=== PATIENT | female | born 1960 | race Two or more races ===

== ENCOUNTER 2020-07-24 11:15 | Outpatient (CLI) | payer MEDICAID ==
[~2020-07-24 11:15] MED LIST: ALBU6.7H9 INH; AMIT25TA10 PO; DULO60CA65 PO; HYDR-4353 PO; INSU100I25 SQ; INSU100I8 SQ; LIRA0.6P2 SQ; LISI-643 PO; METF-438 PO; PREG150C PO; SITA100T11 PO; VENL150C58 PO
[2020-07-24] MEDS ORDERED: silver sulfadiazine cream 50gm TP ONE (12:10)
== END 2020-07-24 23:59 | disposition home or self-care (01) ==
LOC: WOUND CARE 11:15
PROVIDERS: ATTEND Nurse Practitioner
DX: T25.021A Burn of unspecified degree of right foot, initial encounter (principal); T25.022A Burn of unspecified degree of left foot, initial encounter; E11.40 Type 2 diabetes mellitus with diabetic neuropathy, unspecified; I12.9 Hypertensive chronic kidney disease with stage 1 through stage 4 chronic kidney disease, or unspecified chronic kidney disease; N18.9 Chronic kidney disease, unspecified; M19.90 Unspecified osteoarthritis, unspecified site; K74.60 Unspecified cirrhosis of liver; E11.22 Type 2 diabetes mellitus with diabetic chronic kidney disease; Z87.891 Personal history of nicotine dependence; X08.8XXA Exposure to other specified smoke, fire and flames, initial encounter; Y93.89 Activity, other specified; Y92.89 Other specified places as the place of occurrence of the external cause; Y99.8 Other external cause status
CPT/HCPCS: G0463

== ENCOUNTER 2020-09-23 07:43 | Day surgery (SDC) | payer MEDICAID ==
[2020-09-23] VITALS (8 sets, daily range): BP systolic 110–125; BP diastolic 59–75
[~2020-09-23] VITALS: Ht 170.2 cm; Wt 97.7 kg
[2020-09-23] MEDS ORDERED: normal saline 1,000 ML IV SCH ×2 (08:05→13:15)
[2020-09-23] MEDS ORDERED: diphenhydrAMINE 25mg capsule PO PRN (08:05)
[2020-09-23] MEDS ORDERED: VITAMIN B12 (08:27)
[2020-09-23] MEDS ORDERED: OMEP-50 PO (08:27)
[2020-09-23] MEDS ORDERED: AMLO5TAB PO (08:27)
[2020-09-23] MEDS ORDERED: VITAMIN D3 (08:27)
[2020-09-23] MEDS ORDERED: ATOR40TA PO (08:27)
[2020-09-23] MEDS ORDERED: VITAMIN C (08:27)
[2020-09-23] MEDS ORDERED: LACTOBACILLUS (08:27)
[2020-09-23] MEDS ORDERED: NITR0.4T48 SL (08:27)
[2020-09-23 09:05] LABS: BASOPHILS % (AUTO) 0.7 % (0-1); EOSINOPHILS # (AUTO) 0.2 X10'3 (0-0.9); EOSINOPHILS % (AUTO) 3.2 % (0-6); HEMATOCRIT 34.7 % (35.0-45.0); HEMOGLOBIN 11.6 g/dl (12.0-16.0); LYMPHOCYTES # (AUTO) 1.5 X10'3 (1.1-4.8); LYMPHOCYTES % (AUTO) 22.8 % (21-51); MEAN CORPUSCULAR HEMOGLOBIN 29.6 PG (27.0-31.0); MEAN CORPUSCULAR HGB CONC 33.4 g/dL (33.0-36.5); MEAN CORPUSCULAR VOLUME 88.5 FL (78-98); MEAN PLATELET VOLUME 8.7 FL (7.4-10.4); MONOCYTES # (AUTO) 0.4 X10'3 (0-0.9); NEUTROPHILS # (AUTO) 4.2 X10'3 (1.8-7.7); NEUTROPHILS % (AUTO) 66.3 % (42-75); PLATELET COUNT 210 X10'3 (140-440); RED BLOOD COUNT 3.92 X10'6 (4.20-5.60); RED CELL DISTRIBUTION WIDTH 15.4 % (11.5-14.5); WHITE BLOOD COUNT 6.4 X10'3 (4.5-11.0)
[2020-09-23 09:15] LABS: ALBUMIN 3.3 G/DL (3.4-5.0); ANION GAP 12 (8-16); BLOOD UREA NITROGEN 33 MG/DL (7-18); BUN/CREATININE RATIO 22.8 (6.6-38.0); CALCIUM 9.2 MG/DL (8.5-10.1); CHLORIDE 106 MMOL/L (99-107); CREATININE 1.45 MG/DL (0.40-0.90); GLUCOSE 249 MG/DL (70-104); MAGNESIUM 1.7 MG/DL (1.5-2.4); POTASSIUM 4.9 MMOL/L (3.5-5.1); SODIUM 141 MMOL/L (135-145); TOTAL CARBON DIOXIDE 23.2 MMOL/L (24-32); eGFR 37 ML/MIN
[2020-09-23] MEDS ORDERED: iohexol 350MG/ML 100ml bottle IV ONE (11:57)
[2020-09-23] MEDS ORDERED: iohexol 350 MG/ML 50ML vial IV ONE (11:57)
[2020-09-23] MEDS ORDERED: LIDOcaine 1% (10mg/ml)w/preservative injection 20ml MDV ONE (11:57)
[2020-09-23] MEDS ORDERED: heparin 1,000unit/ml 10ml vial 10 ML ONE (11:57)
[2020-09-23] MEDS ORDERED: midazolam 1 mg/ML 2ml injection ONE ×2 (11:57→12:30)
[2020-09-23] MEDS ORDERED: fentaNYL/PF 50MCG/1 ML 2ML syringe ONE (11:57)
[2020-09-23] MEDS ORDERED: OXAZEpam 15mg capsule PO PRN (13:15)
[2020-09-23] MEDS ORDERED: HYDROcodone/acetaminophen 5mg/325mg tablet PO PRN (13:15)
[2020-09-23] MEDS ORDERED: proCHLORperazine 10 MG/2 ml inj IV PRN (13:15)
[2020-09-23] MEDS ORDERED: HYDROcodone/acetaminophen 10/325mg tab PO PRN (13:15)
[2020-09-23] MEDS ORDERED: ondansetron/PF 4mg/2ml inj IV PRN (13:15)
== END 2020-09-23 16:00 | disposition home or self-care (01) ==
LOC: SSTAY O 07:43
PROVIDERS: ATTEND Internal Medicine Cardiovascular Disease
DX: R94.39 Abnormal result of other cardiovascular function study (principal); R07.9 Chest pain, unspecified; I10 Essential (primary) hypertension; E78.5 Hyperlipidemia, unspecified; F41.9 Anxiety disorder, unspecified; K74.60 Unspecified cirrhosis of liver; Z86.19 Personal history of other infectious and parasitic diseases; E11.40 Type 2 diabetes mellitus with diabetic neuropathy, unspecified; E55.9 Vitamin D deficiency, unspecified; E66.9 Obesity, unspecified; Z68.33 Body mass index [BMI] 33.0-33.9, adult; Z79.899 Other long term (current) drug therapy; Z87.891 Personal history of nicotine dependence; Z98.890 Other specified postprocedural states; Z90.49 Acquired absence of other specified parts of digestive tract; Z90.710 Acquired absence of both cervix and uterus; Z86.010 Personal history of colon polyps; Z72.89 Other problems related to lifestyle; F12.90 Cannabis use, unspecified, uncomplicated; Z79.4 Long term (current) use of insulin
CPT/HCPCS: 36415; 80048; 82948; 83735; 85025; 85610; 93005; 93458; 99152; C1760; C1769; C1894; J1644; J2001; J2250; J3010; J7030; Q0163; Q9967; A4620; A6258

== ENCOUNTER 2020-10-22 21:49 | Emergency (ER) | payer MEDICAID ==
[~2020-10-22] VITALS: Ht 170.2 cm; Wt 94.5 kg
[~2020-10-22 21:49] MED LIST changes: -AMIT25TA10 PO; +AMLO5TAB PO; +ATOR40TA PO; -INSU100I25 SQ; +LACTOBACILLUS; +NITR0.4T48 SL; +OMEP-50 PO; -SITA100T11 PO; -VENL150C58 PO; +VITAMIN B12; +VITAMIN C; +VITAMIN D3
[2020-10-22 22:02] VITALS: BP 137/70
[2020-10-22] MEDS ORDERED: SULF1TAB45 PO (22:19)
[2020-10-22] MEDS ORDERED: sulfamethoxazole/trimethoprim DS (800/160mg) tablet PO ONE (22:20)
== END 2020-10-22 22:59 | disposition home or self-care (01) ==
LOC: ER 21:50
DX: L03.012 Cellulitis of left finger (principal); E11.42 Type 2 diabetes mellitus with diabetic polyneuropathy; I10 Essential (primary) hypertension; K21.9 Gastro-esophageal reflux disease without esophagitis; Z90.49 Acquired absence of other specified parts of digestive tract; Z79.4 Long term (current) use of insulin; Z79.899 Other long term (current) drug therapy
CPT/HCPCS: 99284

== ENCOUNTER 2020-11-08 11:36 | Day surgery (SDC) | payer MEDICAID ==
[~2020-11-08] VITALS: Ht 170.2 cm; Wt 94.3 kg
[~2020-11-08 11:36] MED LIST changes: -ALBU6.7H9 INH; +BUPR100T6 PO; +BUSP5TAB3 PO; +ERTU15TA PO; -HYDR-4353 PO; +INSU100I39 SQ; -INSU100I8 SQ; +INSU100V12 SQ; -LACTOBACILLUS; +LYR75C PO; -NITR0.4T48 SL; +ROPI3TAB4 PO; -VITAMIN B12; -VITAMIN C; -VITAMIN D3; +cefazolin/dext.iso 2gm/100ml IV ONE; +famotidine 20mg tablet PO ONE; +ringers solution, lacted 1,000 ML IV SCH
[2020-11-08 12:15] VITALS: BP 120/73
[2020-11-08 12:34] LABS: BASOPHILS # (AUTO) 0.1 X10'3 (0-0.2); EOSINOPHILS # (AUTO) 0.2 X10'3 (0-0.9); EOSINOPHILS % (AUTO) 2.5 % (0-6); LYMPHOCYTES # (AUTO) 1.9 X10'3 (1.1-4.8); LYMPHOCYTES % (AUTO) 23.9 % (21-51); MEAN CORPUSCULAR HEMOGLOBIN 30.1 PG (27.0-31.0); MEAN CORPUSCULAR HGB CONC 33.5 g/dL (33.0-36.5); MEAN CORPUSCULAR VOLUME 89.7 FL (78-98); MEAN PLATELET VOLUME 8.4 FL (7.4-10.4); MONOCYTES # (AUTO) 0.5 X10'3 (0-0.9); MONOCYTES % (AUTO) 6.3 % (2-12); NEUTROPHILS # (AUTO) 5.3 X10'3 (1.8-7.7); NEUTROPHILS % (AUTO) 66.3 % (42-75); PRE OP HEMOGLOBIN 12.8 g/dL (12.0-16.0); PRE OP PLATELET COUNT 233 X10'3 (140-440); RED BLOOD COUNT 4.24 X10'6 (4.20-5.60); RED CELL DISTRIBUTION WIDTH 15.2 % (11.5-14.5)
[2020-11-08 12:50] LABS: HEMOGLOBIN A1C 7.1 % (4.5-6.2)
[2020-11-08 13:00] LABS: ALBUMIN 3.6 G/DL (3.4-5.0); ALBUMIN/GLOBULIN RATIO 0.7 (1.1-1.5); ALKALINE PHOSPHATASE 107 IU/L (46-116); BLOOD UREA NITROGEN 24 MG/DL (7-18); BUN/CREATININE RATIO 24.7 (6.6-38.0); CALCIUM 9.8 MG/DL (8.5-10.1); CHLORIDE 107 MMOL/L (99-107); CREATININE 0.97 MG/DL (0.40-0.90); PRE OP ALT 43 U/L (30-65); PRE OP ANION GAP 10 (8-16); PRE OP AST 30 U/L (10-37); PRE OP BILIRUB, TOTAL 0.2 MG/DL (0.0-1.0); PRE OP GLUCOSE 192 MG/DL (70-104); PRE OP SODIUM 138 MMOL/L (135-145); TOTAL CARBON DIOXIDE 21.3 MMOL/L (24-32); TOTAL PROTEIN 8.5 G/DL (6.4-8.2); eGFR 59 ML/MIN
[2020-11-08 13:03] LABS: C-REACTIVE PROTEIN < 0.05 MG/DL (0.0-0.5)
[2020-11-08] MEDS ORDERED: ondansetron/PF 4mg/2ml inj IV PRN (14:25)
[2020-11-08] MEDS ORDERED: morphine 2 MG/ML inj. syringe IV PRN (14:25)
[2020-11-08] MEDS ORDERED: labetalol 20mg/4ml (5mg/ml) syringe IV PRN (14:25)
[2020-11-08] MEDS ORDERED: ringers solution, lacted 1,000 ML IV SCH (14:25)
[2020-11-08] MEDS ORDERED: hydrALAZINE 20mg/ml inj. IV PRN (14:25)
[2020-11-08] MEDS ORDERED: morphine 4 MG/ML inj SYRINge IV PRN (14:25)
[2020-11-08] MEDS ORDERED: fentaNYL/PF 50MCG/1 ML 2ML syringe IV PRN ×2 (14:25)
[2020-11-08] MEDS ORDERED: sevoflurane 250ml liquid IH ONE (15:48)
[2020-11-08] MEDS ORDERED: bacitracin 15gm ointment TP ONE (15:50)
[2020-11-08] MEDS ORDERED: BUPIVAcaine/PF 2.5 mg/ml (0.25%) 30ml vial ONE (15:50)
[2020-11-08] MEDS ORDERED: fentaNYL/PF 50MCG/1 ML 2ML syringe ONE (16:05)
[2020-11-08] MEDS ORDERED: midazolam 1 mg/ML 2ml injection ONE (16:05)
[2020-11-08] MEDS ORDERED: LIDOcaine 2% (20mg/ml) 5ml vial ONE (16:06)
[2020-11-08] MEDS ORDERED: propofol inj 20 ML IV ONE (16:06)
[2020-11-08] MEDS ORDERED: metoclopramide 5 mg/ml inj ONE (16:06)
[2020-11-08] MEDS ORDERED: povidone-iodine 10% topical ointment 28.4gm TP ONE (16:25)
[2020-11-08 16:40] VITALS: BP 107/54
--- NOTE | 2020-11-08 16:40 | NUR ---
PT RECEIVED FROM OR VIA [facility], DR DEMPSEY PRESENT TO GIVE REPORT, VSS, PT WAKING UP, DENIES PAIN, PIV 20G RIGHT HAND-LR RUNNING 100ML/HR, LEFT FOOT WRAPPED WITH KERLIX AND KOLTON-CDI, + PEDAL PULSE, CSM INTACT.
[2020-11-08 16:50] VITALS: BP 103/53
[2020-11-08 17:00] VITALS: BP 110/55
[2020-11-08 17:10] VITALS: BP 123/76
--- NOTE | 2020-11-08 17:20 | NUR ---
PT GETTING DRESSED, ABLE TO STAND ON HEEL OF LEFT FOOT, DENIES PAIN, DRSG TO LEFT FOOT-CDI, PEDAL PULSE PRESENT, FOOT WARM, PINK, SENSATION INTACT, VSS, TAKING FLUIDS, PIV D/CD-CANNULA INTACT, DISCHARGE INSTRUCTIONS GIVEN TO PT-ALL QUESTIONS ANSWERED, PT TAKEN WITH ALL BELONGINGS TO CAR TO BE TRANSPORTED BY FRIEND.
== END 2020-11-08 17:20 | disposition home or self-care (01) ==
LOC: PAS 11:36
PROVIDERS: ATTEND Podiatrist Foot & Ankle Surgery
DX: T25.032D Burn of unspecified degree of left toe(s) (nail), subsequent encounter (principal); T31.0 Burns involving less than 10% of body surface; J45.909 Unspecified asthma, uncomplicated; F41.9 Anxiety disorder, unspecified; F32.9 Major depressive disorder, single episode, unspecified; E11.22 Type 2 diabetes mellitus with diabetic chronic kidney disease; I12.9 Hypertensive chronic kidney disease with stage 1 through stage 4 chronic kidney disease, or unspecified chronic kidney disease; N18.9 Chronic kidney disease, unspecified; K21.9 Gastro-esophageal reflux disease without esophagitis; E66.9 Obesity, unspecified; Z68.34 Body mass index [BMI] 34.0-34.9, adult; Z86.19 Personal history of other infectious and parasitic diseases; Z86.14 Personal history of Methicillin resistant Staphylococcus aureus infection; Z90.49 Acquired absence of other specified parts of digestive tract; Z90.710 Acquired absence of both cervix and uterus; Z98.890 Other specified postprocedural states; Z87.891 Personal history of nicotine dependence; Z20.822 Contact with and (suspected) exposure to COVID-19; X08.8XXD Exposure to other specified smoke, fire and flames, subsequent encounter
CPT/HCPCS: 16020; 36415; 80053; 82948; 83036; 85025; 85651; 86140; 87426; 93005; A6222; J2001; J2250; J2704; J2765; J3010; J3490; A4215; A4618; A6449; A7000; J7120